=== PATIENT | female | born 1960 | race African-American/Black ===

== ENCOUNTER 2020-10-30 10:39 | Outpatient (CLI) | payer OTHER | END 2020-10-30 23:59 | disposition home or self-care (01) | LOC: LAB 10:39 | PROVIDERS: ATTEND Specialist | DX: Z01.812 Encounter for preprocedural laboratory examination (principal); Z20.822 Contact with and (suspected) exposure to COVID-19 | CPT/HCPCS: 87426; C9803; U0003 ==

== ENCOUNTER 2020-11-05 08:19 | Day surgery (SDC) | payer OTHER ==
[2020-11-05] MEDS ORDERED: ANESTHESIA TRAY IN PYXIS 1 EA TRAY MC ONE (08:21)
[2020-11-05] MEDS ORDERED: EPINEPHRINE (1:1000) 1 MG/ML AMPUL ONE (08:22)
[2020-11-05] MEDS ORDERED: methylPREDNISolone ACETATE 80 MG/ML VIAL ONE (10:12)
[2020-11-05] MEDS ORDERED: BUPIVACAINE 0.25% 75 MG/30 ML VIAL ONE (10:12)
[2020-11-05] MEDS ORDERED: HYDROMORPHONE INJ 2 MG/ML DISP.SYRIN ONE (10:35)
[2020-11-05] MEDS ORDERED: ROCURONIUM BROMIDE 50 MG/5 ML ONE (10:36)
[2020-11-05] MEDS ORDERED: FENTANYL PF 100MCG/2ML AMPUL ONE (11:41)
[2020-11-05] MEDS ORDERED: HYDROMORPHONE 1 MG/1 ML DISP.SYRIN ONE (14:04)
[2020-11-05] MEDS ORDERED: HYDROCODONE/APAP 5/325MG TABLET ONE (14:07)
== END 2020-11-05 15:50 | disposition home or self-care (01) ==
LOC: DS 08:19
PROVIDERS: ATTEND Specialist
DX: M75.41 Impingement syndrome of right shoulder (principal); M65.811 Other synovitis and tenosynovitis, right shoulder; J45.909 Unspecified asthma, uncomplicated; E78.5 Hyperlipidemia, unspecified; K21.9 Gastro-esophageal reflux disease without esophagitis; Z98.890 Other specified postprocedural states; Z79.899 Other long term (current) drug therapy; E66.01 Morbid (severe) obesity due to excess calories
CPT/HCPCS: 29824; 29826; 36415; 86850; A4217; A6253; C1713; J0171; J0330; J0690; J1100; J1885; J2405; J2704; J2765; J3010; J3490 ×3; J1040; J1170

== ENCOUNTER 2022-07-22 09:33 | Outpatient (CLI) | payer OTHER | END 2022-07-22 23:59 | disposition home or self-care (01) | LOC: LAB 09:33 | PROVIDERS: ATTEND Specialist | DX: Z01.812 Encounter for preprocedural laboratory examination (principal); Z20.822 Contact with and (suspected) exposure to COVID-19 | CPT/HCPCS: U0003; C9803 ==

== ENCOUNTER 2022-07-28 05:40 | Day surgery (SDC) | payer OTHER ==
[2022-07-28 06:00] VITALS: BP 131/79
--- NOTE | 2022-07-28 06:15 | NUR ---
DAY SURGERY RECEIVED PATIENT IN DAY SURGERY AT 0615, AMBULATORY,A/OX4, RESPIRATION EVEN AND UNLABORED , RIGHT HAND IV SITE G 20 STARTED, PATIENT IS NPO SINCE LAST NIGHT. ALL CONSENTS SIGNED, SURGICAL CHECK LIST DONE.WAITING TO GO TO SURGERY.
[2022-07-28] MEDS ORDERED: BUPIVACAINE 0.5 % PF 150 MG/30 ML VIAL ONE (06:16)
[2022-07-28] MEDS ORDERED: methylPREDNISolone ACETATE 80 MG/ML VIAL ONE (06:16)
[2022-07-28] MEDS ORDERED: FENTANYL PF 100MCG/2ML AMPUL ONE (07:18)
--- NOTE | 2022-07-28 07:20 | NUR ---
PATIENT TO OR AT THIS TIME
--- NOTE | 2022-07-28 10:00 | NUR ---
ALMA NOTES PT UP AND WALKING AROUND, VSS STABLE , PT ALLEN ANY PAIN AT THIS TIME , STATED WANTS TO GO HOME . Addendum: 07/28/22 at 1052 by EN LEHMAN RN CORRECTION ABOVE TIME IS 10:05
--- NOTE | 2022-07-28 10:04 | NUR ---
RN NOTES RECEIVED PT BACK FROM DAY SURGERY FROM PACU, PT IS A/Ox4, ON RA, STABLE , SILAS WRAP TO LEFT KNEE CDI, PT DENIES ANY PAIN , FAMILY AT THE BED SIDE, CONTINUE TO MONITOR .
--- NOTE | 2022-07-28 10:47 | NUR ---
RN NOTES DISCHARGE INSTRUCTION GIVEN TO PT , VERBALIZES UNDERSTANDING , SILAS WRAP TO RIGHT LEG CDI, IV SITE D/JER. PT LEFT THE FLOOR VIA W/C ACCOMPANIED BY STAFF MEMBER AND FAMILY IN STABLE CONDITION TO MAIN ENTRANCE IN STABLE CONDITION .
[2022-07-28 10:53] VITALS: BP 131/79
== END 2022-07-28 11:10 | disposition home or self-care (01) ==
LOC: DS 05:40
PROVIDERS: ATTEND Specialist
DX: S83.241A Other tear of medial meniscus, current injury, right knee, initial encounter (principal); M94.261 Chondromalacia, right knee; S83.271A Complex tear of lateral meniscus, current injury, right knee, initial encounter; X58.XXXA Exposure to other specified factors, initial encounter; Y93.89 Activity, other specified; Y92.89 Other specified places as the place of occurrence of the external cause; Y99.8 Other external cause status
CPT/HCPCS: 29880; J0690; J3490 ×2; J1040; J1100; J2704; J3010; J0330; J1885; J2405; J7030; A6253; A4217

== ENCOUNTER → 2022-08-10 | Emergency (ER) | payer OTHER ==
[~2022-08-10] VITALS: Ht 157.5 cm; Wt 88.0 kg
[2022-08-10 11:37] VITALS: BP 122/81
== END | disposition left against medical advice (07) ==
LOC: ER 11:27
DX: M79.661 Pain in right lower leg (principal)
CPT/HCPCS: 93971-TC